=== PATIENT | female | born 1965 | race Caucasian/White ===

== ENCOUNTER → 2020-02-14 | Outpatient (CLI) | payer BC ==
--- NOTE | 2020-02-14 08:16 | RAD ---
INDICATION: Cervical radiculopathy COMPARISON: None. IMPRESSION: Cervical spine: 5 views obtained. Mild degenerative changes with osteophyte formation without acute fracture or dislocation. Electronically signed by: Kristopher Willingham MD (02/14/2020 8:13 AM) [id number]
== END | disposition home or self-care (01) ==
LOC: RAD 07:03
PROVIDERS: ATTEND Family Medicine
DX: M47.22 Other spondylosis with radiculopathy, cervical region (principal); M25.78 Osteophyte, vertebrae
CPT/HCPCS: 72050